=== PATIENT | female | born 1975 | race Two or more races ===

== ENCOUNTER 2024-01-28 09:33 | Emergency (ER) | payer OTHER ==
[~2024-01-28] VITALS: Ht 154.9 cm; Wt 63.5 kg
[2024-01-28] MEDS ORDERED: METHYLPREDNISOLONE SOD SUCC 125 MG VIAL IM STA (10:38)
[2024-01-28] MEDS ORDERED: DIPHENHYDRAMINE HCL 50 MG/ML VIAL 1ML IM STA (10:38)
[2024-01-28] MEDS ORDERED: GENTAMICIN SULFATE 0.15 MG/DR DROPS 5ML OP STA (10:38)
[2024-01-28 11:25] LABS: HEMATOCRIT 40.6 % (36.0-45.00); HEMOGLOBIN 13.8 g/dL (12.0-15.00); MEAN CELL VOLUME 82.9 fL (80.00-100.00); MEAN CORPUSCULAR HEMOGLOBIN 28.1 pg (27.00-32.0); MEAN CORPUSCULAR HGB CONC 33.9 g/dl (32.0-36.0); PLATELET COUNT 260 K/uL (150-450); RED BLOOD COUNT 4.89 M/uL (4.00-6.00)
[2024-01-28 11:32] LABS: ERYTHROCYTE SEDIMENTATION RATE 10 mm/hr
[2024-01-28] MEDS ORDERED: CLEOCIN HCL300 MG PO (14:24)
[2024-01-28] MEDS ORDERED: GENTAMICIN SULFA5 ML OP (14:24)
== END 2024-01-28 14:32 | disposition home or self-care (01) ==
LOC: ER 09:34
PROVIDERS: General Practice
DX: H00.011 Hordeolum externum right upper eyelid (principal); H00.012 Hordeolum externum right lower eyelid